=== PATIENT | female | born 1945 | race Caucasian/White ===

== ENCOUNTER → 2016-11-12 | Outpatient (CLI) | payer MEDICARE, OTHER | END | disposition home or self-care (01) | LOC: GMAL 12:54 | PROVIDERS: ATTEND Family Medicine | DX: D50.8 Other iron deficiency anemias (principal) ==

== ENCOUNTER → 2016-12-30 | Outpatient (CLI) | payer MEDICARE, OTHER | END | disposition home or self-care (01) | LOC: GMAL 11:49 | PROVIDERS: ATTEND Family Medicine | DX: R80.9 Proteinuria, unspecified (principal) ==

== ENCOUNTER → 2017-01-20 | Outpatient (CLI) | payer MEDICARE, OTHER | LOC: GMAL 17:07 | PROVIDERS: ATTEND Family Medicine | DX: R30.0 Dysuria (principal); E55.9 Vitamin D deficiency, unspecified ==

== ENCOUNTER → 2017-05-09 | Outpatient (CLI) | payer MEDICARE, OTHER | END | disposition home or self-care (01) | LOC: GMAL 11:17 | PROVIDERS: ATTEND Family Medicine | DX: D50.8 Other iron deficiency anemias (principal) ==

== ENCOUNTER → 2017-05-23 | Outpatient (CLI) | payer MEDICARE, OTHER | END | disposition home or self-care (01) | LOC: GMAL 14:49 | PROVIDERS: ATTEND Family Medicine | DX: D51.3 Other dietary vitamin B12 deficiency anemia (principal); E55.9 Vitamin D deficiency, unspecified ==

== ENCOUNTER → 2017-11-25 | Outpatient (CLI) | payer MEDICARE, OTHER | LOC: GMAL 12:28 | PROVIDERS: ATTEND Family Medicine | DX: D50.8 Other iron deficiency anemias (principal) ==

== ENCOUNTER → 2018-02-16 | Outpatient (CLI) | payer MEDICARE, OTHER ==
--- NOTE | 2018-02-16 17:13 | MRI ---
EXAM DESCRIPTION: Brain w/oContrast CLINICAL HISTORY: CVA COMPARISON: CT head October 17, 2008 TECHNIQUE: Non contrast MRI of the brain is performed according to our usual protocol including multiplanar multi sequence technique. FINDINGS: Sagittal T1 images show intact corpus callosum. Normal pituitary gland with normal T1 appearance of the bernice and medulla and upper cervical cord. Normal signal intensity within the clivus and calvarium. Axial T2 fat sat images reveal preservation of intracranial vascular flow voids. Normal river matter and white matter T2 signal intensity. Normal ventricles with normal gyral and sulcal fold pattern. The globes appear intact and symmetrical. Fluid signal intensity is seen in the right mastoid air cells consistent with mastoid effusion. There may be some fluid in the right tympanic cavity as well. Correlate with the ENT exam. Mucus retention cyst in the left frontal sinus measures 1.6 cm. Axial flair images show scattered foci of increased signal intensity in the subcortical and central white matter consistent with chronic microvascular ischemic changes, mild for age. Diffusion weighted images are negative for focal intense increased signal intensity in the brain parenchyma to suggest restricted diffusion. ADC mapping is negative. Axial T1 images show normal river-white matter differentiation. No high signal intensity hemorrhagic lesion of the brain parenchyma. No subdural hematoma. Axial susceptibility weighted images are negative for focal signal loss to suggest abnormal brain parenchymal calcification or hemosiderin deposition. IMPRESSION: Mild chronic microvascular ischemic changes in the cerebral white matter. No acute intracranial pathologic process. Electronically signed by: Javier Schuler MD 02/16/2018 5:11 PM CDT
== END ==
LOC: MRI 13:42
PROVIDERS: ATTEND Family Medicine
DX: I63.50 Cerebral infarction due to unspecified occlusion or stenosis of unspecified cerebral artery (principal)

== ENCOUNTER → 2018-03-13 | Outpatient (CLI) | payer MEDICARE, OTHER ==
--- NOTE | 2018-03-13 15:54 | MRI ---
EXAM DESCRIPTION: Lumbar Spine w/o Contrast : Magnetic Resonance Imaging. CLINICAL HISTORY: LUMBAR RADICULOPATHY COMPARISON: MRI scan lumbar spine 07/19/2011. TECHNIQUE: Multiplanar, multiple standard sequences, non contrast MRI, lumbar spine. FINDINGS: L5-S1: Minimal disc desiccation. Disc space preserved except for Right side Modic type II endplate reactive changes. Moderate facet arthrosis more on the right with ligament hypertrophy. Left foraminal stenosis and borderline right foraminal stenosis. Mild central canal stenosis. This has progressed since the prior study. L4-5: Moderate disc space loss and disc desiccation with anterior bulging. Modic type II-3 calcified endplate reactive changes with disc spur complex encroaching on the left foramen which is stenotic. Posterior broad-based 5 mm disc bulge. Facet arthrosis more severe on the left with ligament hypertrophy and severe central canal stenosis. Mild to moderate right foraminal narrowing. This has progressed since the prior study. L3-4: Disc desiccation and minimal anterior bulging. Minimal disc space loss. Right side Modic type III endplate reactive changes and more disc space loss; disc spur complex encroaching on the right foramen which is stenotic. Progressive since the prior study. Right posterior disc protrusion extending into the right subarticular recess stenosis and impingement of the descending right L4 nerve. Stable since the prior study. Posterior bilateral flavum ligament hypertrophy and facet arthrosis more on the right. L2-3: Diffuse disc space loss more severe to the right of midline with Modic type II endplate reactive changes. Disc spur complex encroaching on the right foramen with near stenosis. Small cyst abutting the exiting right L2 nerve root. Also posterior bulge into the canal along with labral ligament hypertrophy mild facet arthrosis and moderate canal narrowing. Moderate narrowing of the left foramen. Progressive since the prior study. L1-2: Moderate disc space loss and desiccation with anterior bulging and endplate ridging. Posterior diffuse broad-based bulge with posterior left paracentral disc bulge. Bilateral flavum ligament hypertrophy and mild facet arthrosis with mild to moderate canal narrowing. Moderate bilateral foraminal narrowing. Large right anterior lateral endplate spurs impressing on the right psoas muscle. Stable since the prior study. T12-L1: Mild to moderate disc space loss with large Schmorl's node in the inferior T12 endplate. Anterior bulging and endplate ridging to the right of midline. Progressive since the prior study. Posterior broad-based disc bulge abutting the thecal sac. Posterior elements unremarkable. Canal and foraminal narrowing bilaterally. L1-L4 levoscoliosis. Paravertebral soft tissues paraspinal muscle atrophy. Normal marrow signal in the remaining vertebral bodies and the posterior elements. Vertebral bodies are not compressed at any level. IMPRESSION: 1. Multiple levels of disc degeneration spondylosis facet degeneration disc bulging or protrusion multiple endplate hypertrophic changes and small lymph nodes. Canal narrowing or stenosis at multiple levels. Generally progressive since the prior study. 2. Left foraminal stenosis and mild central canal stenosis at L5-S1 has progressed since the prior study. 3. Posterior broad-based disc bulge at L4-5 and multifactorial severe central canal stenosis, as well as left foraminal stenosis, progressive since the prior study. 4. Spondylosis worse on the right at L3-4 with disc spur encroachment resulting in right foraminal stenosis. Stable since the prior study Right posterior disc protrusion encroaching on the subarticular recess and the descending right L4 nerve. This is stable since the prior study. 5. Disc spur complex encroaching on the right foramen at L2-3 with near stenosis of the foramen. Small cyst abutting the exiting right L2 nerve is a new finding. Moderate narrowing of the canal and foramen, progressive since the prior study. Electronically signed by: Cain Gore MD 03/13/2018 3:53 PM CDT
== END ==
LOC: MRI 09:38
PROVIDERS: ATTEND Family Medicine
DX: M51.86 Other intervertebral disc disorders, lumbar region (principal); M47.896 Other spondylosis, lumbar region

== ENCOUNTER → 2018-05-10 | Outpatient (CLI) | payer MEDICARE, OTHER | LOC: LAB.O 16:31 | PROVIDERS: ATTEND Internal Medicine Hematology & Oncology | DX: D50.8 Other iron deficiency anemias (principal); D64.9 Anemia, unspecified ==

== ENCOUNTER → 2018-11-13 | Outpatient (CLI) | payer MEDICARE, OTHER | LOC: LAB 14:59 | PROVIDERS: ATTEND Internal Medicine Hematology & Oncology | DX: D64.9 Anemia, unspecified (principal); D50.8 Other iron deficiency anemias ==

== ENCOUNTER 2018-12-22 09:56 | Emergency (ER) | payer MEDICARE, OTHER ==
--- NOTE | 2018-12-22 10:16 | ED.PDOC ---
History of Present Illness - General Chief Complaint: General Time Seen by Provider: 12/22/18 10:11 Source: patient Exam Limitations: no limitations - History of Present Illness Initial Comments: Patient presents with left foot pain and swelling for one day. She cannot describe the quality of the pain. She denies radiation of the pain. Denies recent trauma. She is diabetic and says that she has neuropathy. She has had a URI recently. No other complaints. Timing/Duration: 24 hours Severity: mild Improving Factors: nothing Worsening Factors: nothing Associated Symptoms: denies symptoms Allergies/Adverse Reactions: Allergies Metformin [From Kombiglyze] Allergy (Verified 12/12/15 17:03) Saxagliptin [From Kombiglyze] Allergy (Verified 12/12/15 17:03) Home Medications: Ambulatory Orders Insulin Detemir [Levemir] 40 unit SUBCU BEDTIME 12/12/15 Pramipexole Dihydrochloride [Mirapex] 1 mg PO DAILY 12/12/15 Atorvastatin Calcium 40 mg PO DAILY 12/22/18 Cefdinir [Omnicef] 300 mg PO BID #14 cap 12/22/18 Cholecalciferol [D3 2000] 1,000 unit PO DAILY 12/22/18 Cyanocobalamin [B12] 1,000 mcg PO DAILY 12/22/18 Ferrous Sulfate 325 mg PO DAILY 12/22/18 Furosemide 20 mg PO BID 12/22/18 Insulin Lispro [HumaLOG] 300 unit SUBCU ACHS 12/22/18 Review of Systems - Review of Systems Constitutional: States: no symptoms reported EENTM: States: no symptoms reported Respiratory: States: see HPI Cardiology: States: no symptoms reported Gastrointestinal/Abdominal: States: no symptoms reported Genitourinary: States: no symptoms reported Musculoskeletal: States: see HPI Skin: States: no symptoms reported Neurological: States: no symptoms reported Endocrine: States: no symptoms reported Hematologic/Lymphatic: States: no symptoms reported Past Medical History (General) - Patient Medical History Hx Cardiac Disorders: Yes Hx Congestive Heart Failure: No Hx Hypertension: Yes Hx Diabetes: Yes Hx MRSA: Yes - [facility] 2008 MRSA Source:: Wound - Vaccination History Hx Influenza Vaccination: No Hx Pneumococcal Vaccination: No - Social History Hx Alcohol Use: No Hx Substance Use: No Family Medical History - Family History Mother Family History: Unknown Living Status: Physical Exam - Physical Exam General Appearance: Alert Eye Exam: bilateral normal Ears, Nose, Throat: normal ENT inspection Neck: non-tender, full range of motion, supple Respiratory: lungs clear, normal breath sounds Cardiovascular/Chest: normal peripheral pulses, regular rate, rhythm, no edema Gastrointestinal/Abdominal: normal bowel sounds, non tender, soft Neurologic: no motor/sensory deficits, alert, normal mood/affect, oriented x 3 Skin Exam: other - blanching erythema on the dorsum of the left foot and anterior inferior lower leg. Mildly TTP. No exudates Lymphatic: no adenopathy Progress - Progress Progress: 12/22/18 11:55 Laboratory Tests 12/22/18 12/22/18 12/22/18 10:00 10:00 10:00 WBC 13.4 H RBC 4.27 Hgb 11.6 L Hct 35.3 L MCV 82.8 MCH 27.1 MCHC 32.8 L RDW 15.6 H Plt Count 352 MPV 8.1 Absolute Neuts (auto) 11.10 H Absolute Lymphs (auto) 0.70 L Absolute Monos (auto) 1.50 H Absolute Eos (auto) 0.00 Absolute Basos (auto) 0.00 Neutrophils % 83.0 H Lymphocytes % 5.6 L Monocytes % 11.1 H Eosinophils % 0.1 L Basophils % 0.2 PT 12.0 H INR 1.20 H PTT (SP) 36.7 H Sodium 137 Potassium 3.4 L Chloride 101 Carbon Dioxide 24 Anion Gap 15.4 BUN 17 Creatinine 0.82 BUN/Creatinine Ratio 20.7 H Random Glucose 102 Serum Osmolality 275.6 Calcium 8.3 L Total Bilirubin 0.7 AST 17 ALT 12 Alkaline Phosphatase 110 Serum Total Protein 7.3 Albumin 2.7 L Globulin 4.6 H Albumin/Globulin Ratio 0.6 L Group A Strep Rapid 12/22/18 11:28 WBC RBC Hgb Hct MCV MCH MCHC RDW Plt Count MPV Absolute Neuts (auto) Absolute Lymphs (auto) Absolute Monos (auto) Absolute Eos (auto) Absolute Basos (auto) Neutrophils % Lymphocytes % Monocytes % Eosinophils % Basophils % PT INR PTT (SP) Sodium Potassium Chloride Carbon Dioxide Anion Gap BUN Creatinine BUN/Creatinine Ratio Random Glucose Serum Osmolality Calcium Total Bilirubin AST ALT Alkaline Phosphatase Serum Total Protein Albumin Globulin Albumin/Globulin Ratio Group A Strep Rapid Negative wbc 13.4. CXR showed area of possible infiltrate in RLL. It is unclear if the mildly elevated wbc is from pain, new onset LE cellulitis, or developing pneumonia. Gave Rocephin 1 gram IV x one and RX for Omnicef for 7 days. I anthony a border around the LLE and foot erythema so that the patient and her regular doctor can track any progression. Care instructions given. E.R. warnings given. Questions were elicited and answered. Patient voiced understanding and agreement with the plan. 12/22/18 11:59 Departure - Departure Clinical Impression: Upper respiratory infection, Left foot pain Disposition: Discharge to Home or Self Care Condition: Good Departure Forms: ED Discharge - Pt. Copy, Patient Portal Self Enrollment Diet: resume usual diet Activity: increase activity as tolerated Referrals: Gianni Winters III, MD [Primary Care Provider] - 1-2 Weeks Prescriptions: Cefdinir [Omnicef] 300 mg PO BID #14 cap Home Medications: Ambulatory Orders Insulin Detemir [Levemir] 40 unit SUBCU BEDTIME 12/12/15 Pramipexole Dihydrochloride [Mirapex] 1 mg PO DAILY 12/12/15 Atorvastatin Calcium 40 mg PO DAILY 12/22/18 Cefdinir [Omnicef] 300 mg PO BID #14 cap 12/22/18 Cholecalciferol [D3 2000] 1,000 unit PO DAILY 12/22/18 Cyanocobalamin [B12] 1,000 mcg PO DAILY 12/22/18 Ferrous Sulfate 325 mg PO DAILY 12/22/18 Furosemide 20 mg PO BID 12/22/18 Insulin Lispro [HumaLOG] 300 unit SUBCU ACHS 12/22/18 Additional Instructions: Take medications as prescribed. See your regular doctor in 5 days to check the redness on the left foot. Return to the E.R. for increasing pain or swelling of the left foot, temperature above 100.4, increasing coughing, or shortness of breath.
[2018-12-22] MEDS ORDERED: PROMETHAZINE HCL 25 MG TAB ONE (10:18)
[2018-12-22] MEDS ORDERED: SODIUM CHLORIDE 0.9% 1000ML 1,000 ML ONE (10:22)
--- NOTE | 2018-12-22 10:35 | RAD ---
EXAM DESCRIPTION: Foot,Left 3 Views CLINICAL HISTORY: pain COMPARISON: None. IMPRESSION: 3 views of the left foot show diffuse osteopenia the osseous structures without acute fracture, focal bone destruction, or joint dislocation. Moderate joint space narrowing and mild joint and osteophytes of the interphalangeal joints from toes one through 5 is seen with moderate osteoarthritic changes. Mild joint space narrowing and mild joint line osteophytes of the first metatarsophalangeal joint are seen consistent with moderate osteoarthritic changes. Mild bunion deformity of the first metatarsal head is seen. Moderate plantar and small Achilles enthesophytes of the calcaneus are seen. Diffuse soft tissue swelling of the foot is seen with severe arterial vascular calcifications. Electronically signed by: Navi Sandhu MD 12/22/2018 10:32 AM CDT
[2018-12-22] MEDS ORDERED: HYDROcodone 5MG/APAP 325MG 1 EA TAB PO ONE (11:00)
--- NOTE | 2018-12-22 11:10 | US ---
EXAM DESCRIPTION: Venous,Lower Extremity LT (accession [id number]), Venous,Lower Extremity RT (accession [id number]) CLINICAL HISTORY: pain ans swelling COMPARISON: None. TECHNIQUE: 2D grayscale and color venous duplex Doppler evaluation of the lower extremity are obtained from groin to calf. FINDINGS: There is normal flow, augmentation to flow, and compressibility of the deep venous vasculature of the left and right lower extremities with no ultrasound evidence of deep venous thrombosis. IMPRESSION: No ultrasound evidence of deep venous thrombosis in the bilateral lower extremities. Electronically signed by: Navi Sandhu MD 12/22/2018 11:07 AM CDT
--- NOTE | 2018-12-22 11:10 | US ---
EXAM DESCRIPTION: Venous,Lower Extremity LT (accession [id number]), Venous,Lower Extremity RT (accession [id number]) CLINICAL HISTORY: pain ans swelling COMPARISON: None. TECHNIQUE: 2D grayscale and color venous duplex Doppler evaluation of the lower extremity are obtained from groin to calf. FINDINGS: There is normal flow, augmentation to flow, and compressibility of the deep venous vasculature of the left and right lower extremities with no ultrasound evidence of deep venous thrombosis. IMPRESSION: No ultrasound evidence of deep venous thrombosis in the bilateral lower extremities. Electronically signed by: Navi Sandhu MD 12/22/2018 11:07 AM CDT
--- NOTE | 2018-12-22 11:28 | RAD ---
EXAM DESCRIPTION: Chest,1 View: CR/DR/XR. CLINICAL HISTORY: 73 years Female upper respiratory infection COMPARISON: None. TECHNIQUE: ONE VIEW PORTABLE. AP 1113 hours, upright position. FINDINGS: Moderate expansion. Perihilar peribronchial wall cuffing. This pattern in the bilateral interstitial pattern visualized are chronic. Suggestion of early infiltrate in the right lung base. No pleural effusion or pneumothorax. Cardiopulmonary vascular structures and mediastinal silhouette are negative. IMPRESSION: Chronic and senescent lung changes bilaterally. Suggestion of early infiltrate right base. No effusion. No pulmonary vascular congestion. Electronically signed by: Cain Gore MD 12/22/2018 11:25 AM CDT
[2018-12-22] MEDS ORDERED: cefTRIAXone SODIUM 1 GM in SODIUM CHL 0.9% 50ML MIN-BAG+ 50 ML IVPB ONE (12:00)
[2018-12-22 12:34] VITALS: BP 112/64; TEMP 100.3; O2SAT 93
== END 2018-12-22 12:25 | disposition home or self-care (01) ==
LOC: ER 09:56
DX: M79.672 Pain in left foot (principal); J06.9 Acute upper respiratory infection, unspecified; M79.89 Other specified soft tissue disorders; E11.40 Type 2 diabetes mellitus with diabetic neuropathy, unspecified; I10 Essential (primary) hypertension; I51.9 Heart disease, unspecified; Z79.4 Long term (current) use of insulin; Z79.899 Other long term (current) drug therapy; Z88.8 Allergy status to other drugs, medicaments and biological substances

== ENCOUNTER → 2018-12-28 | Outpatient (CLI) | payer MEDICARE, OTHER | LOC: GMAL 16:48 | PROVIDERS: ATTEND Family Medicine | DX: M10.9 Gout, unspecified (principal) ==

== ENCOUNTER 2019-01-16 16:31 | Observation (INO) | payer MEDICARE, OTHER ==
[2019-01-16] MEDS ORDERED: ALUM & MAG HYDROX-SIMETHICONE 30 ML, LIDOCAINE VISCOUS 2% 15 ML PO ONE ×2 (16:38)
[2019-01-16] MEDS ORDERED: MORPHINE SULFATE INJ 10 MG/ML VIAL IM ONE (16:39)
[2019-01-16] MEDS ORDERED: ALUM & MAG HYDROX-SIMETHICONE 30 ML UD ONE (16:40)
[2019-01-16] MEDS ORDERED: LIDOCAINE HCL 2% (MOUTH-THROAT) 15 ML UD ONE (16:40)
--- NOTE | 2019-01-16 17:16 | RAD ---
EXAM DESCRIPTION: Abdomen Series CLINICAL HISTORY: 73 years Female left abd and flank pain COMPARISON: Prior radiograph of the chest dated December 22, [address] scan of the abdomen and pelvis dated May 13, 2016. TECHNIQUE: Three images of the abdomen were obtained which included an AP view of the chest. FINDINGS: Gas is seen throughout the bowel. Bowel is normal in caliber. Mild levoscoliosis lumbar spine. Associated marked degenerative changes thoracolumbar and lumbar spine. 2.1 cm calcification in region of left kidney which would correlate with previously identified renal artery aneurysm. No intraperitoneal free air. Patchy nodular airspace opacities right greater than left new when correlated with the prior study. Tortuosity descending aorta. Increased interstitial findings lung ruiz bilaterally otherwise unchanged. IMPRESSION: Nonspecific bowel gas pattern. No evidence for bowel obstruction or perforation. Nodular infiltrates lower lungs bilaterally right greater than left knee when correlated with the prior study. 2.1 cm calcification in the region of left kidney again identified. 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 Electronically signed by: Chrissy Minaya MD 01/16/2019 5:12 PM CDT
[2019-01-16] MEDS ORDERED: MORPHINE SULFATE INJ 10 MG/ML VIAL IV ONE (17:20)
[2019-01-16] MEDS ORDERED: ONDANSETRON ODT 8 MG TAB SL ONE (17:21)
[2019-01-16] MEDS ORDERED: SUCRALFATE 1 GM/10 ML 1 GM UD PO ONE (17:21)
[2019-01-16] MEDS ORDERED: PANTOPRAZOLE SODIUM IV 40 MG VIAL IV ONE (17:46)
[2019-01-16] MEDS ORDERED: ACETYLCYSTEIN 20 % 6,000 MG/30 ML VIAL PO ONE (17:46)
--- NOTE | 2019-01-16 18:24 | CT ---
EXAM DESCRIPTION: Abdomen/Pelvis w/Contrast CLINICAL HISTORY: 73 years Female severe no acute osseous pain today COMPARISON: Radiograph of the abdomen performed on the same day. Study is also correlated with a CT scan of the abdomen and pelvis dated May 13, 2016. TECHNIQUE: Images were obtained in axial, sagittal, and coronal planes. Intravenous contrast was administered. This exam was performed according to our departmental dose-optimization program which includes use of Automated Exposure Control, adjustment of the mA and/or kV according to patient size and/or use of iterative reconstruction technique. FINDINGS: 1 cm peripherally enhancing focus lateral right lobe of liver likely hemangioma. Spleen is prominent in size measuring 12.9 cm in greatest dimension. Unremarkable pancreas, gallbladder, and adrenal glands bilaterally. 1.2 cm x 2.2 left renal artery aneurysm overall unchanged. Punctate nonobstructing calcifications left kidney. Bilateral renal cysts. Renal parenchymal scarring bilaterally. No obstructing renal calcifications bilaterally. Unremarkable bladder. Previously questioned enhancing lesions superomedial left kidney not well visualized on present study. Enlarged fibroid uterus. Calcification abdominal aorta with no dilatation seen. Unremarkable portal vein. Appendix within normal limits. Moderate constipation. No bowel obstruction, perforation, or inflammation. No significant diverticular change. Small periumbilical hernia which contains only mesenteric fat. This is unchanged when correlated with the prior study. Increased attenuation subcutaneous fat left lower abdomen possibly edema or cellulitis. Noncalcified subcentimeter nodules right lower lobe unchanged. Previously questioned nodular findings left lung base not well visualized on present study. Small hiatal hernia. No acute osseous abnormality. Marked intervertebral disc space narrowing with degenerative change L2-3 level. More remote compression fracture T12 unchanged. IMPRESSION: No acute intra-abdominal abnormality. Possible edema or cellulitis subcutaneous fat left lower abdomen. Electronically signed by: Chrissy Minaya MD 01/16/2019 6:21 PM CDT
--- NOTE | 2019-01-16 20:06 | ED.PDOC ---
History of Present Illness - General Chief Complaint: Abdominal Pain Stated Complaint: Pt complains of L flank pain radiating to the LUQ Time Seen by Provider: 01/16/19 16:34 Source: patient Exam Limitations: no limitations - History of Present Illness Initial Comments: the patient is a 73-year-old female presenting to the emergency room after 6-8 hours of abdominal pain primarily in the epigastric and left upper quadrant. She does have some mild nausea but no vomiting. Pain is worse with palpation and with movement. No definite fevers. She does have diabetes. She reports being compliant with medications. No syncope or near syncope. Pain is rated as a 9 out of 10. It was fairly abrupt in onset. No recent injuries. No bruising of the abdominal wall. No difficulties with bowel movements. No urinary symptoms. Severity: severe Improving Factors: medication Worsening Factors: movement Associated Symptoms: diaphoresis, loss of appetite, nausea/vomiting Allergies/Adverse Reactions: Allergies Metformin [From Kombiglyze] Allergy (Verified 01/16/19 18:35) Saxagliptin [From Kombiglyze] Allergy (Verified 01/16/19 18:35) Home Medications: Ambulatory Orders Insulin Detemir [Levemir] 40 unit SUBCU BEDTIME 12/12/15 Pramipexole Dihydrochloride [Mirapex] 1 mg PO DAILY 12/12/15 Atorvastatin Calcium 40 mg PO DAILY 12/22/18 Cholecalciferol [D3 2000] 1,000 unit PO DAILY 12/22/18 Cyanocobalamin [B12] 1,000 mcg PO DAILY 12/22/18 Ferrous Sulfate 325 mg PO DAILY 12/22/18 Furosemide 20 mg PO BID 12/22/18 Insulin Lispro [HumaLOG] 300 unit SUBCU ACHS 12/22/18 Review of Systems - Review of Systems Constitutional: States: diaphoresis EENTM: States: no symptoms reported Respiratory: States: no symptoms reported Cardiology: States: no symptoms reported Gastrointestinal/Abdominal: States: abdominal pain, nausea Genitourinary: States: no symptoms reported Musculoskeletal: States: back pain Skin: States: no symptoms reported Neurological: States: anxiety Endocrine: States: no symptoms reported All other Systems: No Change from Baseline Past Medical History (General) - Patient Medical History Hx Stroke: No Hx of COPD: No Hx Cardiac Disorders: Yes - stent placed 9 yrs ago Hx Congestive Heart Failure: No Hx Hypertension: No Hx Diabetes: Yes Hx Cancer: No Hx MRSA: Yes MRSA Source:: Wound Surgical History: other - Vaccination History Hx Tetanus, Diphtheria Vaccination: No Hx Influenza Vaccination: Yes Hx Pneumococcal Vaccination: Yes Immunizations Up to Date: Yes - Social History Hx Tobacco Use: No Hx Alcohol Use: Yes - occasional Hx Substance Use: No Hx Substance Use Treatment: No Hx Depression: No - Female History Patient is a Female of Child Bearing Age (10 -59 yrs old): No Patient : No Family Medical History - Family History Mother Family History: Unknown Living Status: Physical Exam - Physical Exam General Appearance: Alert, Anxious, Obvious distress Eye Exam: bilateral normal Ears, Nose, Throat: hearing grossly normal, normal ENT inspection, normal pharynx Neck: full range of motion, supple Respiratory: lungs clear, normal breath sounds, no respiratory distress, no accessory muscle use Cardiovascular/Chest: normal peripheral pulses, regular rate, rhythm, no edema Peripheral Pulses: radial,right: 2+, radial,left: 2+, dorsalis pedis,right: 2+, dorsalis pedis,left: 2+ Gastrointestinal/Abdominal: soft, other - pigastric and left upper quadrant to left lateral abdomen discomfort palpation. No definite palpable mass. Rectal Exam: deferred Back Exam: normal inspection, no CVA tenderness, no vertebral tenderness Extremity: non-tender, normal inspection, no pedal edema, normal capillary refill Neurologic: director of instructional technology II-XII nml as tested, alert, normal mood/affect, oriented x 3 Skin Exam: normal color Comments: Vital Signs - 24 hr 01/16/19 01/16/19 01/16/19 16:53 17:52 19:16 Temperature 97.3 F L Pulse Rate [R 90 77 76 finger] Respiratory 22 18 18 Rate Blood Pressure 122/77 113/69 122/68 [L arm] O2 Sat by Pulse 100 96 93 L Oximetry Progress - Progress Progress: 01/16/19 20:08 the patient is a 73-year-old female presenting with epigastric and left upper quadrant pain. Pain was very severe and did require opiate dosing. The patient has also received numerous GI medications. She is resting comfortably at this point. I believe this is primarily a gastritis or gastroenteritis giving her any symptoms. Given the patient's age and the distance that she lives from a hospital, I wanted to admit the patient overnight for continued symptom control. It is likely that the pain will come back and she will require significant additional dosings. I would recommend a bland or liquid diet at this point. Zofran seemed to help significantly with the nausea. Admit for continued care and monitoring. - Results/Orders Results/Orders: acute abdominal series does show some constipation. CT scan abdomen and pelvis with IV contrast shows no definitive acute pathology. No obstruction. No free air. No obvious diverticulitis. There is some mild edematous changes of the left lower abdomen wall but the patient is not tender there. Laboratory Tests 01/16/19 01/16/19 01/16/19 16:47 16:47 16:47 WBC 7.9 RBC 4.39 Hgb 11.9 L Hct 36.3 MCV 82.9 MCH 27.2 MCHC 32.9 L RDW 17.9 H Plt Count 173 MPV 8.6 Absolute Neuts (auto) 5.90 Absolute Lymphs (auto) 1.20 Absolute Monos (auto) 0.60 Absolute Eos (auto) 0.20 Absolute Basos (auto) 0.10 Neutrophils % 74.5 Lymphocytes % 14.8 L Monocytes % 7.5 Eosinophils % 2.5 Basophils % 0.7 PT 10.1 INR 1.01 PTT (SP) 28.6 Sodium 139 Potassium 3.6 Chloride 103 Carbon Dioxide 24 Anion Gap 15.6 BUN 18 Creatinine 0.90 BUN/Creatinine Ratio 20.0 Random Glucose 228 H Serum Osmolality 286.6 Lactic Acid Calcium 8.9 Magnesium 1.7 L Total Bilirubin 1.0 AST 17 ALT 11 Alkaline Phosphatase 103 Creatine Kinase 57 CK-MB (CK-2) 3.1 CK-MB (CK-2) % Not Reportable Troponin I < 0.02 B-Natriuretic Peptide 30.4 Serum Total Protein 7.3 Albumin 3.5 Globulin 3.8 H Albumin/Globulin Ratio 0.9 L Amylase 116 H Lipase 64 H Urine Color Urine Appearance Urine pH Ur Specific [place] Urine Protein Urine Glucose (UA) Urine Ketones Urine Blood Urine Nitrite Urine Bilirubin Urine Urobilinogen Ur Leukocyte Esterase Urine RBC Urine WBC Ur Epithelial Cells Urine Bacteria 01/16/19 01/16/19 16:47 17:35 WBC RBC Hgb Hct MCV MCH MCHC RDW Plt Count MPV Absolute Neuts (auto) Absolute Lymphs (auto) Absolute Monos (auto) Absolute Eos (auto) Absolute Basos (auto) Neutrophils % Lymphocytes % Monocytes % Eosinophils % Basophils % PT INR PTT (SP) Sodium Potassium Chloride Carbon Dioxide Anion Gap BUN Creatinine BUN/Creatinine Ratio Random Glucose Serum Osmolality Lactic Acid 1.3 Calcium Magnesium Total Bilirubin AST ALT Alkaline Phosphatase Creatine Kinase CK-MB (CK-2) CK-MB (CK-2) % Troponin I B-Natriuretic Peptide Serum Total Protein Albumin Globulin Albumin/Globulin Ratio Amylase Lipase Urine Color Yellow Urine Appearance Sl cloudy Urine pH 5.5 Ur Specific [place] 1.015 Urine Protein Negative Urine Glucose (UA) Negative Urine Ketones Negative Urine Blood Trace-lysed H Urine Nitrite Negative Urine Bilirubin Negative Urine Urobilinogen 0.2 Ur Leukocyte Esterase Trace H Urine RBC 1-3 Urine WBC 1-3 Ur Epithelial Cells 1-3 Urine Bacteria 0 Departure - Departure Clinical Impression: Abdominal pain Qualifiers: Abdominal location: epigastric Qualified Code(s): R10.13 - Epigastric pain Gastritis Qualifiers: Gastritis type: unspecified gastritis Chronicity: acute Gastritis bleeding: without bleeding Qualified Code(s): K29.00 - Acute gastritis without bleeding Disposition: Admit Patient Departure Forms: ED Discharge - Pt. Copy, Patient Portal Self Enrollment Home Medications: Ambulatory Orders Insulin Detemir [Levemir] 40 unit SUBCU BEDTIME 12/12/15 Pramipexole Dihydrochloride [Mirapex] 1 mg PO DAILY 12/12/15 Atorvastatin Calcium 40 mg PO DAILY 12/22/18 Cholecalciferol [D3 2000] 1,000 unit PO DAILY 12/22/18 Cyanocobalamin [B12] 1,000 mcg PO DAILY 12/22/18 Ferrous Sulfate 325 mg PO DAILY 12/22/18 Furosemide 20 mg PO BID 12/22/18 Insulin Lispro [HumaLOG] 300 unit SUBCU ACHS 12/22/18 Decision To Admit - Decistion To Admit Decision to Admit Reason: Medical Nature Decision to Admit Date: 01/16/19 Decision to Admit Time: 20:10
[2019-01-16] MEDS ORDERED: SODIUM CHLORIDE 0.9% (FLUSH) 10 ML SYG IV PRN (21:51)
[2019-01-16] MEDS ORDERED: GLUCAGON INJ 1 MG VIAL SUBCU PRN (21:51)
[2019-01-16] MEDS ORDERED: ONDANSETRON INJ 4 MG/2 ML VIAL IV PRN (21:51)
[2019-01-16] MEDS ORDERED: DEXTROSE 50% 25 GM/50 ML SYG IV PRN (21:51)
[2019-01-16] MEDS ORDERED: MORPHINE SULFATE INJ 10 MG/ML VIAL IV PRN (21:51)
[2019-01-16] MEDS ORDERED: MAGNESIUM SULFATE PREMIX 2GM 2 GM in PREMIX BAG 1 BAG IVPB ONE (21:58)
[2019-01-16] MEDS ORDERED: IV SET AND CAP CHANGE INJ INJ SCH (22:00)
[2019-01-16] MEDS ORDERED: MAGNESIUM SULFATE PREMIX 2GM 50 ML IVPB ONE (22:25)
[2019-01-16] MEDS: KCL 20 MEQ/NS 1,000 ML IVS PRN (22:30)
[2019-01-17] MEDS: INSULIN LISPRO 100 UNITS/ML PEN SUBCU SCH ×3 (00:13→11:49)
[2019-01-17] MEDS ORDERED: PANTOPRAZOLE SODIUM IV 40 MG VIAL IV SCH (06:30)
--- NOTE | 2019-01-17 07:26 | RAD ---
2 Radiographs of the Abdomen. Indication: abdominal pain Comparison: CT January 16, 2019. Impression: No free air. Bowel gas pattern nonspecific. Peripherally calcified left renal artery aneurysm redemonstrated measuring approximately 2.2 cm. Several left renal calculi noted measuring up to 5 mm. Excreted contrast within the bladder. Degenerative changes of the spine noted. Electronically signed by: Felipe Humphrey MD 01/17/2019 7:23 AM CDT
[2019-01-17] MEDS: ENOXAPARIN SODIUM 40 MG/0.4 ML SYG SUBCU SCH ×2 (09:39→09:43)
[2019-01-17] MEDS: KCL 20 MEQ/NS 1,000 ML IVS PRN (12:00)
[2019-01-17 13:49] VITALS: BP 125/73; TEMP 98.8; O2SAT 96
--- NOTE | 2019-01-17 15:09 | SSS ---
SUPERVISING PHYSICIAN: Heath Villagomez MD DATE OF ADMISSION: 01/16/19 DATE OF DISCHARGE: 01/17/19 CHIEF COMPLAINT: Left upper quadrant pain. HISTORY OF PRESENT ILLNESS: Ms. Pastrana is a 73-year-old female patient who presented to the Emergency Department late last night after she started having some severe left upper quadrant pain and felt she was maybe having some early signs of a heart attack. She had been seen in her primary care physician's office by Dr. Winters. She noted she had been having some mild pain in the left upper quadrant since Tuesday, but the pain significantly worsened after she left Singh' office. At that time, she called his office and they recommended she go to the Emergency Department for further evaluation. She noted she thought she was having a heart attack and took an aspirin on Tuesday. It did not make the pain dissipate. She presented to the Emergency Room with pain rated 9/10. She denied any fevers, chills or actual chest pain. She does have a history of diabetes. Her initial workup in the Emergency Room showed she had CBC with white count 7,900, hemoglobin 11.9, hematocrit 36.3, platelet count normal at 123. Differential was without a left shift. Chemistries did show an elevated lipase at 64, amylase 116, otherwise all other liver functions and electrolytes were within normal limits. Magnesium was slightly low at 1.7. Her cardiac enzymes showed troponin less than 0.02. 12-lead EKG in the Emergency Room showed a sinus rhythm at 87 with a right bundle branch block. Otherwise, no significant ST or T wave changes to indicate any injury pattern. She did have a CT of the abdomen and pelvis with contrast and per radiologic interpretation there were no acute intraabdominal abnormalities noted. She was given a GI cocktail which did result in resolution of her pain as well as Zofran and some morphine. Dr. Villagomez, the Emergency Room physician, requested the patient be placed in observation for further evaluation and close monitoring. She was admitted in stable condition with concerns for possible early gastritis versus mild pancreatitis. The patient had been recently treated for an episode of gout and placed on indomethacin for 7 days as well as Colcrys. Her symptoms that she presented to the Emergency Department for apparently started shortly after she finished the 7-day course of indomethacin. PAST MEDICAL HISTORY: 1. Coronary artery disease. 2. Hyperlipidemia. 3. Hypertension. 4. History of colonic polyps with a scheduled colonoscopy this coming Tuesday. 5. History of kidney stones. 6. Type 2 diabetes mellitus. 7. Insomnia. 8. Iron deficiency anemia. PAST SURGICAL HISTORY: 1. Tubal ligation in 1973. 2. Left knee arthroscopy with removal of loose body in 2008. 3. Excisional I&D of right buttock abscess and perineal cellulitis in 2008. 4. Last colonoscopy was in 2011 with note of several polyps and large mid transverse lipoma. 5. Last EGD in 2011 showed mild gastric erosion. HOME MEDICATIONS: 1. Mirapex 1 mg daily. 2. Humalog sliding scale. 3. Levemir 40 units at bedtime. 4. Lasix 20 mg b.i.d. 5. Ferrous sulfate 325 mg daily. 6. Vitamin B12 1000 mcg daily. 7. D3 supplement 1000 units daily. 8. Atorvastatin 40 mg daily. ALLERGIES: METFORMIN, SAXAGLIPTIN FAMILY HISTORY: Father at age 82 secondary to esophageal cancer and questionable lung cancer. Mother secondary to emphysema with history of colonic polyps and skin cancer. She had one brother who had skin cancer. She has two sons and one has congenital heart disease with multiple coronary aneurysms. The other is in good health. She has two daughters, both in good health. Maternal grandmother had multiple myeloma. SOCIAL HISTORY: The patient is a homemaker. She is . She has never smoked tobacco. She does not drink alcohol. She lives in [place], [place]. REVIEW OF SYSTEMS: CONSTITUTIONAL: Negative for any fevers, chills, general malaise or unexplained weight loss. HEENT: Negative for sore throats, earaches, nasal congestion, vision changes. CARDIOVASCULAR: Negative for chest pain, palpitations, tachycardia or syncopal episodes. GASTROINTESTINAL: As noted in history of present illness, left upper quadrant pain with nausea. She does have issues with constipation, but no diarrhea or major bowel habit changes. GENITOURINARY: Negative for dysuria, hematuria, polyuria. NEUROLOGIC: Negative for any seizures, ataxia, syncopal episodes or other neurologic changes. PHYSICAL EXAMINATION: VITAL SIGNS: Initially on admission to the Emergency Room, temperature was 97.3. Pulse 90. Blood pressure 122/77. Respirations 18 to 22. Saturation 100% on room air. GENERAL: On examination on the Medical/Surgical Floor, the patient is resting comfortably and appears to be in no acute distress. She is currently without any pain or complaints. She is alert. HEENT: Tympanic membranes clear bilaterally. Oropharynx is pink, moist without any lesions. NECK: Supple, nontender with full range of motion. No jugular venous distention noted. RESPIRATORY: Lungs clear to auscultation bilaterally without any rhonchi, wheezes, or rales. CARDIOVASCULAR: Regular rate and rhythm without any appreciable murmurs, gallops, or rubs. ABDOMEN: Soft with some tenderness noted on the epigastric and left upper quadrant, but no point tenderness, no masses. Bowel sounds active. RECTAL: Deferred. BACK: Normal to inspection. No CVA tenderness. No vertebral tenderness. EXTREMITIES: There is no cyanosis, clubbing or edema. NEUROLOGIC: The patient is alert and oriented times three. Cranial nerves II- XII are grossly intact. Facial features are symmetrical. Extraocular movements are within normal limits. There is no nystagmus noted. LABORATORY: CBC on admission showed white count 7,900. At discharge, it was 6,000. Hemoglobin and hematocrit were stable with hemoglobin at discharge of 10.6 and hematocrit 13.7. Platelet count 151,000. Differential was without a left shift. Coagulation studies showed PT 10.2, PTT 28.2. Chemistries both on admission and at discharge showed normal electrolytes. Discharge potassium 3.8. BUN 18, creatinine 0.8. Blood sugars ranged between 149 and 228. Calcium 8.3. Magnesium low initially on admission. After replacement and prior to discharge, magnesium was 2.3. Liver functions all remained within normal limits. Amylase was elevated on admission at 116. At discharge, it was down to 63. Lipase 64 on admission and 26 on discharge. Urinalysis showed trace lysed blood, trace of leukocyte esterase, otherwise within normal limits. RADIOLOGY: She had an abdominal x-ray in the Emergency Department prior to admission which showed nonspecific bowel gas pattern, no evidence of bowel obstruction or perforation. This was followed up with CT of the abdomen and pelvis with contrast and per radiologic interpretation showed no acute intraabdominal abnormalities. Please see that report for full details. She had an abdominal x-ray on the morning of discharge without any acute findings. HOSPITAL COURSE: Ms. Pastrana was admitted from the Emergency Room last night as noted above in the history of present illness for left upper quadrant pain that seems to be attributable to possibly some gastritis and resulted in some mild pancreatitis. She was given fluids and responded well to treatment and is no longer having any pain. She was admitted for overnight observation. Her diet was advanced without any complications. She was given fluids and showed clinical improvement well enough to continue with outpatient management. She is scheduled to have a colonoscopy and possibly EGD this Tuesday in [place], [place]. DISCHARGE ASSESSMENT: GENERAL: The patient was alert and oriented times 3 and in no acute distress. CHEST: Lungs clear to auscultation. HEART: Regular rate and rhythm. ABDOMEN: Soft with some continued mild tenderness in the left upper quadrant. No rebound tenderness, no point tenderness, no peritoneal signs. Bowel sounds were active. EXTREMITIES: Without any edema. NEUROLOGIC: Alert and oriented times 3. LABORATORY: As noted above. ADMISSION DIAGNOSIS: 1. Left upper quadrant abdominal pain, possibly acute gastritis without any evidence of bleeding. 2. History of gout with recent treatment with indomethacin and Colcrys. 3. Mild electrolyte imbalance with hypomagnesemia. 4. Diabetes mellitus, type 2. 5. History of iron deficiency anemia on iron therapy. 6. History of hypertension, stable. 7. History of colonic polyps, awaiting followup with GI for colonoscopy. DISCHARGE DIAGNOSIS: 1. Acute abdominal pain secondary to probable acute gastritis with very mild pancreatitis, responding to IV fluids, probably secondary to recent medications to include indomethacin and Colcrys for treatment of acute gout. 2. Mild electrolyte imbalance with hypomagnesemia, resolved with parenteral replacement. 3. Diabetes mellitus, type 2. 4. History of iron deficiency anemia on iron therapy. 5. History of hypertension, stable. 6. History of colonic polyps, awaiting followup with GI for colonoscopy. PLAN: The patient is discharged to followup with her GI specialist this coming Tuesday. She is start GI prep tomorrow. She will need close clinical followup with Dr. Winters. I have encouraged her to push fluids to prevent dehydration and followup her preprocedural instructions per her GI doctor after discharge. She is to avoid spice foods until seen in followup and avoid aspirin, NSAIDs and Tylenol. DISPOSITION: The patient is discharged to home. CONDITION AT DISCHARGE: Stable and improved. #[id number] [facility]
[2019-01-17] MEDS ORDERED: SUCRALFATE 1 GM/10 ML 1 GM UD PO SCH (16:30)
== END 2019-01-17 18:19 | disposition home or self-care (01) ==
LOC: ER 16:31 → MS 20:47
PROVIDERS: ADMIT Nurse Practitioner Family; ATTEND Nurse Practitioner Family
DX: E83.42 Hypomagnesemia (principal); E87.8 Other disorders of electrolyte and fluid balance, not elsewhere classified; R10.12 Left upper quadrant pain; E11.65 Type 2 diabetes mellitus with hyperglycemia; D50.9 Iron deficiency anemia, unspecified; I10 Essential (primary) hypertension; I25.10 Atherosclerotic heart disease of native coronary artery without angina pectoris; E78.5 Hyperlipidemia, unspecified; G47.00 Insomnia, unspecified; I72.2 Aneurysm of renal artery; N20.0 Calculus of kidney; R91.1 Solitary pulmonary nodule; I45.10 Unspecified right bundle-branch block; K44.9 Diaphragmatic hernia without obstruction or gangrene; Z79.4 Long term (current) use of insulin; Z79.899 Other long term (current) drug therapy; Z88.8 Allergy status to other drugs, medicaments and biological substances; Z86.010 Personal history of colon polyps; Z87.442 Personal history of urinary calculi; Z80.0 Family history of malignant neoplasm of digestive organs; Z80.7 Family history of other malignant neoplasms of lymphoid, hematopoietic and related tissues; Z80.8 Family history of malignant neoplasm of other organs or systems; Z83.6 Family history of other diseases of the respiratory system; Z83.71 Family history of colonic polyps
CPT/HCPCS: 96365; 96375; 96376; 96372 ×2; J2270 ×2; J3475; J3480 ×2; J1815; 82553; 80053 ×2; 82948 ×4; 36415 ×2; 82150 ×2; 81001; 85025 ×2; 82550; 83690 ×2; 83735 ×2; 85730; 85610; 84484; 83880; 36416 ×4; 83605; 74019 ×2; 74177; 94760 ×2; 99285; 93005; G0378

== ENCOUNTER → 2019-11-19 | Outpatient (CLI) | payer MEDICARE, OTHER | LOC: GMAL 14:58 | PROVIDERS: ATTEND Family Medicine | DX: R53.82 Chronic fatigue, unspecified (principal); I10 Essential (primary) hypertension; I50.9 Heart failure, unspecified ==

== ENCOUNTER → 2020-01-31 | Outpatient (CLI) | payer MEDICARE, OTHER ==
--- NOTE | 2020-01-31 22:10 | MRI ---
EXAM DESCRIPTION: Lumbar Spine w/o Contrast : Magnetic Resonance Imaging. CLINICAL HISTORY: RADICULOPATHY LUMBAR REGION COMPARISON: MRI lumbar spine without contrast 03/13/2018. TECHNIQUE: Multiplanar, multiple standard sequences, non contrast MRI, lumbar spine. FINDINGS: L5-S1: The disc is well visualized on axial T2 series 501, image 3. Disc desiccated and minimal disc space loss to the left of midline with moderate endplate reactive changes. Grade 1 anterolisthesis 4 mm. No significant disc bulge. Moderate degenerative hypertrophy of the posterior flavum ligaments and facet joints (canal elements). AP canal diameter 10 mm. This has progressed since the prior study. Bilateral neural foraminal stenosis. This is progressed since the prior study. L4-L5: Disc desiccation and disc space loss. Infiltrate Schmorl's nodes advanced spondylosis to the left of midline. Disc spur complex encroaching on the left foramen which is markedly stenotic. Also stenosis of the left subarticular recess, impinging the descending left L5 nerve. Marked degenerative hypertrophy of the canal elements. AP canal diameter 5 mm. Mild to moderate right foraminal narrowing. No interval change. L3-L4: Disc desiccation and anterior bulging and disc space loss in the midline into the right of midline with advanced spondylosis and endplate changes. Also anterior bulging and endplate spurs. Disc spur complex encroaching on the right foramen which is mildly stenotic. Posterior broad-based bulge and bulge into the left foramen. Hypertrophic degenerative changes of the canal elements. AP canal diameter 9 mm. Mild to moderate left foraminal narrowing. No change from the prior study. L2-L3: Disc desiccation and disc space loss mostly in the midline and right of midline. Anterior bulging and endplate spurs. Grade 1 retrolisthesis with posterior broad-based disc nerve complex encroaching on the canal and stenosis right subarticular recess encroaching on the right L3 nerve. Moderate degenerative hypertrophy of the canal elements. AP canal diameter 10 mm. Borderline right foraminal stenosis and mild left foraminal narrowing. Stable since the prior study. L1-L2: Disc desiccation and minimal disc space loss. Anterior bulging and endplate ridging. Midline endplate changes. Posterior broad-based disc bulge. Degenerative hypertrophy of the canal elements. AP canal diameter 11 mm. Left foramen patent with mild narrowing of the right foramen. No interval change. T12-L1: Disc desiccation and midline Schmorl's nodes inferior T12. Posterior minimal disc bulge. Mild degenerative hypertrophy of the canal elements. Canal and foramina are patent. No change from the prior study. Conus terminates at this level. Levoscoliosis L1-L4. Paravertebral soft tissues with bilateral renal cysts. Paraspinal muscle atrophy.. Distal cord normal signal and caliber. Normal marrow signal in the remaining vertebral bodies and the posterior elements. Vertebral bodies are not compressed at any level. IMPRESSION: 1. Multilevel disc desiccation, disc space loss, endplate spondylosis, degenerative hypertrophy of the posterior flavum ligaments and facet joints (canal elements), subarticular recess narrowing and stenosis, and scoliosis. 2. Borderline mild central canal stenosis at L5-S1 and bilateral foraminal stenosis is progressed since the prior study. Correlate for right L5 radiculopathy. 3. Severe multifactorial central canal stenosis at L4-L5, and mild multifactorial central canal stenosis at L3-L4 stable since the prior study. Right subarticular recess stenosis and encroachment on the right L3 nerve showing no interval change. Electronically signed by: Cain Gore MD 01/31/2020 10:08 PM CDT
== END ==
LOC: MRI 10:00
PROVIDERS: ATTEND Family Medicine
DX: M47.26 Other spondylosis with radiculopathy, lumbar region (principal); M51.36 Other intervertebral disc degeneration, lumbar region; M24.28 Disorder of ligament, vertebrae; M46.96 Unspecified inflammatory spondylopathy, lumbar region; M48.062 Spinal stenosis, lumbar region with neurogenic claudication; M41.9 Scoliosis, unspecified

== ENCOUNTER → 2020-03-11 | Outpatient (CLI) | payer MEDICARE, OTHER | LOC: GMAL 18:06 | PROVIDERS: ATTEND Family Medicine | DX: D51.3 Other dietary vitamin B12 deficiency anemia (principal); E03.8 Other specified hypothyroidism; E55.9 Vitamin D deficiency, unspecified; I10 Essential (primary) hypertension; E11.9 Type 2 diabetes mellitus without complications; Z79.899 Other long term (current) drug therapy ==

== ENCOUNTER → 2020-03-14 | Outpatient (CLI) | payer MEDICARE, OTHER ==
--- NOTE | 2020-03-14 16:25 | MRI ---
EXAM DESCRIPTION: Brain w/wo Contrast: Magnetic Resonance Imaging. CLINICAL HISTORY: 74 years Female DIZZINESS AND GIDDINESS COMPARISON: MRI scan of the brain without IV gadolinium February 2018. TECHNIQUE: Multiplanar, high-field MRI, multiple conventional sequences, without and with gadolinium IV contrast. No adverse reactions. Multiple axial diffusion sequences. Technically difficult study due to patient exhaustion at end of study with motion degradation of sequences, particularly postcontrast sequences. FINDINGS: Bilateral hyperintense foci of FLAIR and T2-weighted signal in the .Frontal periventricular white matter more on the right. Also subcortical left frontal white matter. Pain no other focal lesion with similar signal associated with white matter tracts or the posterior limb of the left internal capsule is stable. ormal contrast enhancement. No hemorrhage, no cerebral edema, no mass-effect. Normal signal in the bilateral basal ganglia. Normal contrast enhancement. Normal signal in the brainstem and cerebellar hemispheres. Normal contrast enhancement. Concordance of the diffusion and non-diffusion sequences with no evidence of acute or subacute infarction. Cortical sulci, ventricles, and other CSF spaces, and the subdural spaces are stable and normally configured for patients age.. No effacement or displacement. No midline shift. No extra-axial hemorrhage. Normal contrast enhancement. Normal flow signal void in the major vessels of the [place], and the venous sinuses. IACs are symmetric bilaterally. Diffuse fluid signal in the right mastoid air cells, stable from the prior study. No mass effect in the bilateral Cerebellopontine angles. Normal contrast enhancement. Pituitary gland occupies approximately 50% of the sella. Normal contrast enhancement. Base of the cerebellar tonsils is same level as the foramen magnum. Mucoperiosteal thickening in the paranasal sinuses. Similar to the prior study. The bony calvarium is intact. IMPRESSION: 1. No acute or significant white matter lesions. Stable age-related, cerebral microvascular disease and white matter lesions. No hemorrhage or mass effect or abnormal contrast enhancement. 2. 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 Chronic paranasal sinusitis. Electronically signed by: Cain Gore MD 03/14/2020 4:24 PM CDT
== END ==
LOC: MRI 10:55
PROVIDERS: ATTEND Family Medicine
DX: I67.89 Other cerebrovascular disease (principal); R90.82 White matter disease, unspecified; H70.11 Chronic mastoiditis, right ear; J32.9 Chronic sinusitis, unspecified